=== PATIENT | female | born 1985 | race African-American/Black ===

== ENCOUNTER 2017-04-28 15:26 | Emergency (ER) | payer MEDICAID, OTHER ==
[~2017-04-28] VITALS: Ht 167.6 cm; Wt 140.2 kg
[~2017-04-28 15:26] MED LIST: PREN0.01 PO
--- NOTE | 2017-04-28 16:30 | PD ---
HPI Travel History International Travel<30 Days: No Contact w/Intl Traveler<30Days: No Known Affected Area: No History of Present Illness HPI Patient is a 31-year-old at 38 weeks and 2 days who presents with decreased movement. She reports that for the past week she has been estimate kick counts around 3/h. Normal is over 10 per hour. She reports experiencing contractions about every 10 minutes since arriving here. She denies any vaginal bleeding or leakage of fluid. Review of systems is negative except for patient reports some dizziness when going from sitting to standing. Since arriving here in the OB ED, patient reports that she is able to feel more movement. History Past Medical History Medical History: Denies Significant Hx Obstetric History Obstetric History Patient is a . She reports that all 5 of her previous pregnancies were full term vaginal uncomplicated deliveries. Past Surgical History Surgical History: No Previous Surgery Family History Narrative Family History She denies any family history of diabetes, hypertension, problems. Family History: Negative Social History Narrative Social History Patient lives at home with her 5 children and her boyfriend. Alcohol Use: No Tobacco Use: No Substance Abuse: No Allergies-Medications (Allergen,Severity, Reaction): Coded Allergies: No Known Allergies (Verified , 04/28/17) Home Meds Reported Medications Multivit/Min/Fol Ac/Iron/Pren ( Vit ( Plus)) Tab1 Tab PO DAILY 09/08/13 Review of Systems General / Constitutional: No: Fever, Chills Eyes: No: Diploplia, Blurred Vision, Visual changes HENT: No: Headaches Cardiovascular: No: Chest Pain or Discomfort, Edema Respiratory: No: Short of Breath Gastrointestinal: Abdominal Pain (patient feels her contractions), No: Nausea , Vomiting Genitourinary: No: Dysuria Musculoskeletal: Cramping, No: Edema Neurologic: No: Headache Physical Exam Blood pressure 137/84, pulse 99-111, respiratory rate 18, temperature 97.8, pain 0 Narrative GENERAL: Well-nourished, well-developed obese female patient. SKIN: Warm and dry. HEAD: Normocephalic and atraumatic. EYES: No scleral icterus. No injection or drainage. ENT: No nasal drainage noted. Mucous membranes pink. Airway patent. NECK: Supple, trachea midline. No JVD. CARDIOVASCULAR: Regular rate and rhythm without murmurs, gallops, or rubs. RESPIRATORY: Breath sounds equal bilaterally. No accessory muscle use. BREASTS: Bilateral exam showed no masses , no retractions, no nipple discharge. ABDOMEN/GI: Abdomen soft, non-tender, bowel sounds present, no rebound, no guarding Gravid to 38 weeks size GENITOURINARY: External Genitalia: intact and normal in appearance Cervix: Posterior Dilatation: 3cm Effacement: 40% Station: -3 Presentation: Vertex Membranes: intact Uterine Contractions: q2-5min FHT's: Category: Category 1 Baseline: 140 Reactive: Reactive Variability: moderate Decels: none EXTREMITIES: No cyanosis or edema. BACK: Nontender without obvious deformity. No CVA tenderness. NEUROLOGICAL: Awake and alert. Motor and sensory grossly within normal limits. Normal speech. Data Data Vital Signs Reviewed: Yes Orders Vital Signs (Adult) .ON ADMISSION (04/28/17 16:28) ^ Labor Status (04/28/17 16:28) ^ Non Stress Test (04/28/17 16:28) ^ Hydration (04/28/17 16:28) MDM Plan Patient is a 31-year-old at 38 weeks and 2 days who presents with decreased movement. She reports that for the past week she has been estimate kick counts around 3/h. Normal is over 10 per hour. Since arriving here in the OB ED, patient reports that she is able to feel more movement. 1. Decreased movement with category 1, reactive heart tracing and no significant cervical change from 2 cm at her last clinic visit 3 cm today. Monitor vital signs Monitor labor status/tocometry Monitor heart rate Encourage by mouth hydration Patient seen and discussed with Dr. Bautista. Diagnosis Diagnosis: Primary Impression: Decreased movement Additional Impression: with 38 completed weeks gestation Ruled Out: demise due to miscarriage Disposition: 01 DISCHARGE HOME Condition: Jordan Lobo MD R1 Apr 28, 2017 16:30
== END 2017-04-28 17:14 | disposition home or self-care (01) ==
LOC: HOBED 15:26
DX: O36.8130 Decreased fetal movements, third trimester, not applicable or unspecified (principal); R42 Dizziness and giddiness; Z3A.38 38 weeks gestation of pregnancy
CPT/HCPCS: 59025

== ENCOUNTER 2017-05-12 13:09 | Emergency (ER) | payer MEDICAID ==
--- NOTE | 2017-05-12 14:11 | PD ---
HPI Chief Complaint Abdominal and back pain Date Seen: May 12, 2017 Time Seen: 14:00 Travel History International Travel<30 Days: No Contact w/Intl Traveler<30Days: No Known Affected Area: No History of Present Illness HPI Patient is a 31-year-old at 40 weeks and 2 days who presents to OB triage complaining of lower abdominal and back pain. The pain comes and goes regularly q5-6 min. Patient reports that pain doesn't feel like contractions. Patient states that she experienced vaginal bleeding yesterday and describes it as bloody show in mucus. Patient denies gush of fluid. Positive movement. Para: 5 : 6 History Past Medical History Medical History: Denies Significant Hx Obstetric History Obstetric History Patient is a . She reports that all 5 of her previous pregnancies were full term vaginal uncomplicated deliveries. Past Surgical History Surgical History: No Previous Surgery Family History Narrative Family History She denies any family history of diabetes, hypertension, problems. Social History Narrative Social History Patient lives at home with her 5 children and her boyfriend. Alcohol Use: No Tobacco Use: No Substance Abuse: No Allergies-Medications (Allergen,Severity, Reaction): Coded Allergies: No Known Allergies (Verified , 04/28/17) Home Meds Reported Medications Multivit/Min/Fol Ac/Iron/Pren ( Vit ( Plus)) Tab1 Tab PO DAILY 09/08/13 Review of Systems Except as stated in HPI: all other systems reviewed are Neg Physical Exam Blood pressure 136/89, heart rate 90, respiratory rate 20, temperature 98.5 Narrative GENERAL: Well-nourished, well-developed patient. SKIN: Warm and dry. HEAD: Normocephalic and atraumatic. EYES: No scleral icterus. No injection or drainage. ENT: No nasal drainage noted. Mucous membranes pink. Airway patent. NECK: Supple, trachea midline. No JVD. CARDIOVASCULAR: Regular rate and rhythm without murmurs, gallops, or rubs. RESPIRATORY: Breath sounds equal bilaterally. No accessory muscle use. ABDOMEN/GI: Abdomen soft, non-tender, bowel sounds present, no rebound, no guarding Gravid to 40 weeks size GENITOURINARY: External Genitalia: intact and normal in appearance Dilatation: 4-5 Effacement: 40 Station: -2 Presentation: vertex Membranes: Intact Uterine Contractions: q5-8min FHT's: Category: 1 Reactive:; + EXTREMITIES: No cyanosis or edema. BACK: Nontender without obvious deformity. No CVA tenderness. NEUROLOGICAL: Awake and alert. Motor and sensory grossly within normal limits. Five out of 5 muscle strength in all muscle groups. Normal speech. Data Data Vital Signs Reviewed: Yes MDM Medical Record Reviewed: Yes Plan Patient is a 31-year-old at 40 weeks and 2 days who presents to OB triage complaining of lower abdominal and back pain. * Patient was reassured that pains are part of normal . * Patient was discharged home. Prior to discharge, patient was educated on signs and symptoms of active labor. Diagnosis Diagnosis: Primary Impression: Rule out active labor Additional Impression: 40 weeks gestation of Disposition: 01 DISCHARGE HOME Condition: Good Annie Luna MD R1 May 12, 2017 14:11
== END 2017-05-12 14:22 | disposition home or self-care (01) ==
LOC: HOBED 13:09
DX: O26.893 Other specified pregnancy related conditions, third trimester (principal); Z3A.40 40 weeks gestation of pregnancy
CPT/HCPCS: 99284

== ENCOUNTER 2017-05-20 08:18 | Inpatient (IN) | payer MEDICAID ==
[2017-05-20] VITALS (97 sets, daily range): BP systolic 103–161; BP diastolic 61–91; PULSE 78–137; RESP 16–18; TEMP 97.6–98.6
[~2017-05-20] VITALS: Ht 167.6 cm; Wt 142.0 kg
[2017-05-20] MEDS ORDERED: LACTATED RINGER'S 1000 ML INJ 1,000 ML IV SCH (08:53)
[2017-05-20] MEDS ORDERED: LACTATED RINGER'S 1000 ML INJ 1,000 ML IV PRN (08:53)
[2017-05-20] MEDS ORDERED: OXYTOCIN 30 UNITS-500ML PREMIX 500 ML IV SCH ×2 (09:00→17:00)
[2017-05-20] MEDS ORDERED: MINERAL OIL 10 ML VIAL TOPICAL PRN (09:00)
[2017-05-20] MEDS ORDERED: CITRIC ACID-SODIUM CITRATE LIQ 30 ML UDC PO SCH (09:00)
[2017-05-20] MEDS ORDERED: ONDANSETRON HCL 4 MG/2 ML VIAL IV PRN (09:00)
[2017-05-20] MEDS ORDERED: OXYTOCIN 30 UNITS-500ML PREMIX 500 ML IV ONE (09:00)
[2017-05-20] MEDS ORDERED: LIDOCAINE HCL 1% 50 ML VIAL I-DERMAL PRN (09:00)
[2017-05-20] MEDS ORDERED: LIDOCAINE HCL 1% 50 ML VIAL INFIL PRN (09:00)
[2017-05-20] MEDS ORDERED: SODIUM CHLORID 0.9% 500 ML INJ 500 ML IV PRN (09:00)
[2017-05-20] MEDS ORDERED: SODIUM CHLOR 0.9% 1000 ML INJ 1,000 ML IV PRN (09:13)
[2017-05-20 09:19] LABS: AUTOMATED NEUTROPHIL # 3.6 TH/MM3 (1.8-7.7); BASOPHIL % 0.3 % (0.0-2.0); EOSINOPHIL # 0.1 TH/MM3 (0-0.4); EOSINOPHIL % 1.7 % (0.0-4.0); HEMATOCRIT 34.3 % (35.0-46.0); HEMO FLAGS DIFF FINAL; LYMPHOCYTE # 1.8 TH/MM3 (1.0-4.8); MEAN CELL VOLUME 70.8 FL (80.0-100.0); MEAN CORPUSCULAR HEMOGLOBIN 22.8 PG (27.0-34.0); MEAN CORPUSCULAR HGB CONC 32.2 % (32.0-36.0); MONO % 6.3 % (0.0-8.0); NEUT % 60.7 % (16.0-70.0); PLATELET COUNT 185 TH/MM3 (150-450); RED BLOOD COUNT 4.84 MIL/MM3 (4.00-5.30); RED CELL DISTRIBUTION WIDTH 15.9 % (11.6-17.2); WHITE BLOOD COUNT 5.9 TH/MM3 (4.0-11.0)
[2017-05-20 09:38] LABS: BACTERIA, URINE FEW /hpf; BLOOD, URINE NEG (NEG); COMMENT (UR) CULTURE INDICATED; CULTURE IF INDICATED CULTURE INDICATED; GLUCOSE,URINE NEG (NEG); KETONE, URINE NEG (NEG); NITRITE,URINE NEG (NEG); PH, URINE 5.5 (5.0-8.5); SQUAMOUS EPITHELIAL CELL URINE 16 /hpf (0-5); URINE COLOR YELLOW (YELLW/STRAW)
--- NOTE | 2017-05-20 10:12 | HHI.HP ---
HPI Chief Complaint Induction of labor Date Seen: May 20, 2017 Travel History International Travel<30 Days: No Contact w/Intl Traveler<30Days: No Known Affected Area: No History of Present Illness HPI 31 year old at 41/3 who came in for induction of labor. She notes that none of her prior pregnancies had gestated this long. Patient states she has been seeing Kay Turner outpatient, reports no complications of , was told she was 4cm dilated last week, -GBS, no hypertension, and a normal ultrasound several months ago. No malodorous, bloody or other discharge from vagina. No urgency, dysuria or change in urinary color/smell/frequency. Reported good movement, no current contractions. She states no recent chest pain, shortness of breath, abdominal pain or other complaints at this time. Para: 4 : 5 Miscarriage: 0 : 0 History Past Medical History Medical History: Denies Significant Hx Past Surgical History Surgical History: No Previous Surgery Family History Family History: Negative Social History Alcohol Use: No Tobacco Use: No Substance Abuse: No Allergies-Medications (Allergen,Severity, Reaction): Coded Allergies: No Known Allergies (Verified , 05/20/17) Home Meds Reported Medications Multivit/Min/Fol Ac/Iron/Pren ( Vit ( Plus)) Tab1 Tab PO DAILY 09/08/13 Review of Systems General / Constitutional: No: Fever, Chills Eyes: No: Diploplia, Blurred Vision, Visual changes, Pain HENT: No: Headaches, Vertigo, Lightheadedness Cardiovascular: No: Irregular Rhythm, Chest Pain or Discomfort, Palpitations, Tachycardia, Syncope Respiratory: No: Cough, Short of Breath, Wheezing Gastrointestinal: No: Nausea, Vomiting, Diarrhea, Abdominal Pain, Constipation Genitourinary: No: Urgency, Frequency, Dysuria, Hematuria Musculoskeletal: No: Limited ROM, Weakness, Edema Skin: No Rash, No Itching Neurologic: No: Weakness, Dizziness, Syncope Psychiatric: No: Anxiety, Depression Physical Exam Vital Signs Date Time Temp Pulse Resp B/P Pulse Ox O2 Delivery O2 Flow Rate FiO2 05/20/17 09:25 95 05/20/17 09:20 105 05/20/17 09:15 95 Narrative GENERAL: Well-nourished, well-developed patient. SKIN: Warm and dry. HEAD: Normocephalic and atraumatic. EYES: No scleral icterus. No injection or drainage. ENT: No nasal drainage noted. Mucous membranes pink. Airway patent. NECK: Supple, trachea midline. No JVD. CARDIOVASCULAR: Regular rate and rhythm without murmurs, gallops, or rubs. RESPIRATORY: Breath sounds equal bilaterally. No accessory muscle use. ABDOMEN/GI: Abdomen soft, non-tender, bowel sounds present, no rebound, no guarding GENITOURINARY: External Genitalia: intact and normal in appearance Cervix: posterior Dilatation: 7 Effacement: 70 Station: -2 Membranes: AROM Uterine Contractions: none FHT's: Category: 1 Baseline: 140 Reactive: + Variability: moderate Decels: none EXTREMITIES: No cyanosis or edema. BACK: Nontender without obvious deformity. No CVA tenderness. NEUROLOGICAL: Awake and alert. Motor and sensory grossly within normal limits. Five out of 5 muscle strength in all muscle groups. Normal speech. Data Data Orders Admit To Inpatient (05/20/17 ) Code Status (05/20/17 08:53) Vital Signs (Adult) .Per protocol (05/20/17 08:53) Activity Oob Ad Consuelo (05/20/17 08:53) Heart (05/20/17 08:53) Amnioinfusion (05/20/17 08:53) Urinary Catheter Management .ONCE (05/20/17 08:53) Diet Liquid (05/20/17 Breakfast) Lactated Ringer's 1000 Ml Inj (Lr 1000 M (05/20/17 08:53) Lactated Ringer's 1000 Ml Inj (Lr 1000 M (05/20/17 08:53) Sodium Chlorid 0.9% 500 Ml Inj (Ns 500 M (05/20/17 09:00) Sodium Chlor 0.9% 1000 Ml Inj (Ns 1000 M (05/20/17 09:13) Lidocaine 1% Inj (50 Ml) (Xylocaine 1% I (05/20/17 09:00) Citric Acid-Sodium Citrate Liq (Bicitra (05/20/17 09:00) Ondansetron Inj (Zofran Inj) (05/20/17 09:00) Fentanyl Inj (Fentanyl Inj) (05/20/17 09:00) Fentanyl Inj (Fentanyl Inj) (05/20/17 09:00) Complete Blood Count With Diff (05/20/17 08:53) Hold Clot (05/20/17 08:53) Abo/Rh Blood Type (05/20/17 08:53) Urinalysis - C+S If Indicated (05/20/17 08:53) Resp Oxygen Non Rebreathe Mask (05/20/17 ) ^ Epidural / Intrathecal Infus (05/20/17 08:53) Oxytocin 30 Units-500ml Premix (Pitocin (05/20/17 09:00) Lidocaine 1% Inj (50 Ml) (Xylocaine 1% I (05/20/17 09:00) Light Mineral Oil (Muri-Lube Oil) (05/20/17 09:00) Inpatient Certification (05/20/17 ) Specimen To Be Collected PRN (05/20/17 08:53) ^ Non Stress Test (05/20/17 08:55) Response To Medication .Post New Med Administration, Reaction (05/20/17 08:55) ^ Discontinue Medication (05/20/17 08:55) Oxytocin 30 Units-500ml Premix (Pitocin (05/20/17 09:00) Urine Culture (05/20/17 08:40) Labs Laboratory Tests Test 05/20/17 08:40 White Blood Count 5.9 Red Blood Count 4.84 Hemoglobin 11.0 Hematocrit 34.3 Mean Corpuscular Volume 70.8 Mean Corpuscular Hemoglobin 22.8 Mean Corpuscular Hemoglobin 32.2 Concent Red Cell Distribution Width 15.9 Platelet Count 185 Mean Platelet Volume 10.7 Neutrophils (%) (Auto) 60.7 Lymphocytes (%) (Auto) 31.0 Monocytes (%) (Auto) 6.3 Eosinophils (%) (Auto) 1.7 Basophils (%) (Auto) 0.3 Neutrophils # (Auto) 3.6 Lymphocytes # (Auto) 1.8 Monocytes # (Auto) 0.4 Eosinophils # (Auto) 0.1 Basophils # (Auto) 0.0 CBC Comment DIFF FINAL Differential Comment Urine Color YELLOW Urine Turbidity HAZY Urine pH 5.5 Urine Specific Parachute 1.018 Urine Protein 30 Urine Glucose (UA) NEG Urine Ketones NEG Urine Occult Blood NEG Urine Nitrite NEG Urine Bilirubin NEG Urine Urobilinogen LESS THAN 2.0 Urine Leukocyte Esterase LARGE Urine RBC 1 Urine WBC 20 Urine WBC Clumps RARE Urine Squamous Epithelial 16 Cells Urine Bacteria FEW Microscopic Urinalysis Comment CULTURE INDICATED Blood Type Blood Bank Comment Band and Hold Date/Time Procedure Status Source Growth 05/20/17 08:40 Urine Culture Received Urine Clean Catch Pending Assessment/Plan Assessment and Plan Induction of labor -Pitocin -AROM -Fentanyl PRN pain -Expectant delivery d/w Dr. Green, Jordan Boswell MD R1 May 20, 2017 10:11
--- NOTE | 2017-05-20 14:52 | PD.LABORPN ---
Subjective Subjective Patient seen and examined. Resting comfortably in bed. Objective Vital Signs Vital Signs Date Time Temp Pulse Resp B/P Pulse Ox O2 Delivery O2 Flow Rate FiO2 05/20/17 14:29 88 18 135/88 05/20/17 14:25 89 1817 14:20 85 1817 14:15 88 05/20/17 14:10 85 17 14:05 83 05/20/17 14:00 90 05/20/17 13:55 87 05/20/17 13:50 83 17 13:45 83 17 13:40 82 05/20/17 13:35 82 05/20/17 13:30 88 05/20/17 13:29 88 137/80 05/20/17 13:25 89 05/20/17 13:20 95 17 13:15 91 05/20/17 13:10 97 05/20/17 13:05 98 05/20/17 12:55 95 05/20/17 12:50 130 17 12:45 123 17 12:40 97 17 12:35 126 05/20/17 12:30 137 05/20/17 12:10 115 05/20/17 12:00 83 05/20/17 11:55 95 17 11:50 87 17 11:45 104 17 11:40 91 17 11:39 90 129/76 1817 11:35 94 1817 11:30 85 17 11:25 92 1817 11:20 90 1817 11:15 91 17 11:10 86 1817 11:05 88 17 11:00 87 17 10:55 87 1817 10:50 88 17 10:45 94 18/17 10:40 86 18/17 10:35 84 18/17 10:31 89 131/61 18/17 10:30 86 16 18/17 10:30 97.9 18/17 10:25 78 18/17 10:20 90 8/18/17 10:15 86 05/20/17 10:10 86 05/20/17 10:05 88 05/20/17 10:00 84 05/20/17 09:55 91 05/20/17 09:50 95 05/20/17 09:45 89 05/20/17 09:40 99 05/20/17 09:35 93 127/81 05/20/17 09:35 91 05/20/17 09:30 94 05/20/17 09:25 95 05/20/17 09:20 105 05/20/17 09:15 95 05/20/17 09:10 97 05/20/17 09:05 102 05/20/17 09:00 102 05/20/17 08:55 101 05/20/17 08:50 94 05/20/17 08:45 97.6 05/20/17 08:45 99 Objective Pelvic Exam: Dilatation: 9 Effacement: 80 Station: -1 Presentation: vertex Membranes: AROM Uterine Contractions: every 2-3 minutes FHT's: Category: 2 Baseline: 150 Reactive: + Variability: Moderate Decels: intermittent decelerations Assessment/Plan Assessment and Plan 31 year old at 41-3/7 weeks gestation. 1. IUP- Category II tracing -Position changes -Fluid bolus -Continue to monitor 2. Induction of labor. AROM with clear fluid. 3. GBS negative dw Dr. Cifuentes, Dr. Michele Valderrama,Jordan Luis MD R1 May 20, 2017 14:52
[2017-05-20] MEDS ORDERED: DIPHTH/TETANUS/ACEL PERTUSSIS (BOOSTER) 0.5 ML VIAL/PFS IM ONE (16:00)
[2017-05-20] MEDS ORDERED: MEASLES, MUMPS, RUBELLA VACCINE 0.5 ML VIAL SQ ONE (16:00)
--- NOTE | 2017-05-20 16:22 | PD.LABORPN ---
Subjective Subjective Patient is breathing through contractions. Objective Vital Signs Vital Signs Date Time Temp Pulse Resp B/P Pulse Ox O2 Delivery O2 Flow Rate FiO2 05/20/17 15:45 102 18/17 15:40 100 18/17 15:35 98 18/17 15:35 98 147/90 18/17 15:30 98.2 18 18/17 15:30 95 18/17 15:25 93 18/17 15:20 94 18/17 15:15 93 18/17 15:10 93 18/17 15:05 101 17 15:00 109 17 14:55 97 17 14:50 99 17 14:45 96 17 14:40 94 05/20/17 14:35 85 05/20/17 14:30 84 05/20/17 14:29 88 18 135/88 05/20/17 14:25 89 05/20/17 14:20 85 05/20/17 14:15 88 05/20/17 14:10 85 18/17 14:05 83 05/20/17 14:00 90 18/17 13:55 87 18/17 13:50 83 18/17 13:45 83 18/17 13:40 82 18/17 13:35 82 18/17 13:30 88 18/17 13:29 88 137/80 18/17 13:25 89 18/17 13:20 95 05/20/17 13:15 91 05/20/17 13:10 97 18/17 13:05 98 18/17 12:55 95 18/17 12:50 130 18/17 12:45 123 18/17 12:40 97 18/17 12:35 126 18/17 12:30 137 18/17 12:10 115 18/17 12:00 83 18/17 11:55 95 18/17 11:50 87 18/17 11:45 104 18/17 11:40 91 18/17 11:39 90 129/76 18/17 11:35 94 05/20/17 11:30 85 05/20/17 11:25 92 05/20/17 11:20 90 05/20/17 11:15 91 05/20/17 11:10 86 05/20/17 11:05 88 05/20/17 11:00 87 05/20/17 10:55 87 05/20/17 10:50 88 05/20/17 10:45 94 05/20/17 10:40 86 05/20/17 10:35 84 05/20/17 10:31 89 131/61 05/20/17 10:30 86 16 05/20/17 10:30 97.9 05/20/17 10:25 78 05/20/17 10:20 90 05/20/17 10:15 86 05/20/17 10:10 86 05/20/17 10:05 88 05/20/17 10:00 84 05/20/17 09:55 91 05/20/17 09:50 95 05/20/17 09:45 89 05/20/17 09:40 99 05/20/17 09:35 93 127/81 05/20/17 09:35 91 05/20/17 09:30 94 05/20/17 09:25 95 05/20/17 09:20 105 05/20/17 09:15 95 05/20/17 09:10 97 05/20/17 09:05 102 05/20/17 09:00 102 05/20/17 08:55 101 05/20/17 08:50 94 05/20/17 08:45 97.6 05/20/17 08:45 99 Objective Pelvic Exam: Cervix: midposition Dilatation: 9 Effacement: 90 Station: -1 Presentation: vertex Membranes: AROM, clear fluid Uterine Contractions: q2-3min FHT's: Category: II Baseline: 140 Reactive: + Variability: moderate Decels: intermittent variable decelerations Assessment/Plan Assessment and Plan 31 year old at 41-3/7 weeks gestation. 1. IUP- Category II tracing -Position changes -IV fluids -Continue to monitor 2. Induction of labor. AROM with clear fluid. IUPC placed. 3. GBS negative dw Dr. Bautista and Dr. Valderrama R1 Luisa Cifuentes MD, R3 May 20, 2017 16:22
--- NOTE | 2017-05-20 16:56 | PD.OB.DELI ---
Delivery Date: May 20, 2017 Anesthesia: None Episiotomy: None Vaginal Delivery: Normal Presentation: Occiput anterior Nuchal Cord: None Delayed cord clamping (45 sec): No Shoulder Dystocia: Hawa maneuver done Infant: Male One Minute : 7 Five Minute : 9 Weight: 4675g Placenta: Spontaneous delivery, Intact, 3 vessel cord Laceration: No lacerations Estimated blood loss: 100cc Additional Information Mild shoulder dystocia, responded to rotational maneuver. Delivery easily accomplished after that with no identifiable injury. Supervised by Dr. Bautista and Dr. Valderrama R1 Luisa Cifuentes MD, R3 May 20, 2017 16:56
[2017-05-20] MEDS ORDERED: BENZOCAINE 20% TOPICAL SPRAY 60 ML CAN TOPICAL PRN (17:00)
[2017-05-20] MEDS ORDERED: SODIUM CHLORIDE 0.9% FLUSH 10 ML FLUSH IV FLUSH PRN (17:00)
[2017-05-20] MEDS ORDERED: ZOLPIDEM TARTRATE 5 MG TAB PO PRN (17:00)
[2017-05-20] MEDS ORDERED: WITCH HAZEL 50%/GLYCERIN 12.5% 40 PAD JAR TOPICAL PRN (17:00)
[2017-05-20] MEDS ORDERED: ACETAMINOPHEN 325 MG TAB PO PRN (17:00)
[2017-05-20] MEDS ORDERED: oxyCODONE/ACETAMINOPHEN 5 MG/325 MG TAB PO PRN ×2 (17:00)
[2017-05-20] MEDS ORDERED: DOCUSATE SODIUM 50 MG/SENNA 8.6 MG TAB PO PRN (17:00)
[2017-05-20] MEDS ORDERED: ONDANSETRON ODT 4 MG TAB PO PRN (17:00)
[2017-05-20] MEDS ORDERED: ALUMINUM/MAGNESIUM/SIMETH 30 ML CUP PO PRN (17:00)
[2017-05-20] MEDS ORDERED: SODIUM CHLORIDE 0.9% FLUSH 10 ML FLUSH IV FLUSH SCH (21:00)
[2017-05-21] MEDS: IBUPROFEN 600 MG TAB PO PRN ×2 (05:34→14:05)
[2017-05-21 08:00] VITALS: BP 111/74; PULSE 98; RESP 17; TEMP 97.8
--- NOTE | 2017-05-21 08:30 | HHI.OB ---
Subjective Post Day: 1 Remarks day # 1. AFVSS overnight. Decreased lochia. Denies dysuria. No breast tenderness. She is feeding the baby via and formula. Appetite good. No nausea or vomiting. Ambulating well. Denies calf pain or shortness of breath. Otherwise, she is doing well this morning and has no other concerns. Objective Vitals/I&O Vital Signs Date Time Temp Pulse Resp B/P Pulse Ox O2 Delivery O2 Flow Rate FiO2 05/20/17 20:00 97.7 100 18 05/20/17 20:00 143/80 05/20/17 18:25 98.6 101 16 131/81 05/20/17 17:46 94 128/82 05/20/17 17:30 97.6 05/20/17 17:28 93 121/68 05/20/17 17:15 18 05/20/17 16:55 106 103/83 05/20/17 16:31 102 161/91 05/20/17 16:10 100 05/20/17 16:05 97 05/20/17 16:00 125 05/20/17 15:55 118 05/20/17 15:50 99 05/20/17 15:45 102 05/20/17 15:40 100 05/20/17 15:35 98 05/20/17 15:35 98 147/90 05/20/17 15:30 98.2 18 05/20/17 15:30 95 05/20/17 15:25 93 17 15:20 94 05/20/17 15:15 93 05/20/17 15:10 93 05/20/17 15:05 101 05/20/17 15:00 109 05/20/17 14:55 97 05/20/17 14:50 99 05/20/17 14:45 96 05/20/17 14:40 94 05/20/17 14:35 85 17 14:30 84 17 14:29 88 18 135/88 1817 14:25 89 1817 14:20 85 1817 14:15 88 1817 14:10 85 05/20/17 14:05 83 05/20/17 14:00 90 05/20/17 13:55 87 8/18/17 13:50 83 8/18/17 13:45 83 8/18/17 13:40 82 8/18/17 13:35 82 8/18/17 13:30 88 8/18/17 13:29 88 137/80 8/18/17 13:25 89 8/18/17 13:20 95 8/18/17 13:15 91 8/18/17 13:10 97 8/18/17 13:05 98 8/18/17 12:55 95 8/18/17 12:50 130 8/18/17 12:45 123 8/18/17 12:40 97 8/18/17 12:35 126 8/18/17 12:30 137 8/18/17 12:10 115 8/18/17 12:00 83 8/18/17 11:55 95 8/18/17 11:50 87 8/18/17 11:45 104 8/18/17 11:40 91 8/18/17 11:39 90 129/76 8/18/17 11:35 94 8/18/17 11:30 85 8/18/17 11:25 92 8/18/17 11:20 90 8/18/17 11:15 91 8/18/17 11:10 86 8/18/17 11:05 88 8/18/17 11:00 87 8/18/17 10:55 87 8/18/17 10:50 88 8/18/17 10:45 94 8/18/17 10:40 86 8/18/17 10:35 84 8/18/17 10:31 89 131/61 8/18/17 10:30 86 16 8/18/17 10:30 97.9 8/18/17 10:25 78 8/18/17 10:20 90 8/18/17 10:15 86 8/18/17 10:10 86 8/18/17 10:05 88 8/18/17 10:00 84 8/18/17 09:55 91 8/18/17 09:50 95 8/18/17 09:45 89 8/18/17 09:40 99 8/18/17 09:35 93 127/81 8/18/17 09:35 91 8/18/17 09:30 94 8/18/17 09:25 95 8/18/17 09:20 105 05/20/17 09:15 95 05/20/17 09:10 97 05/20/17 09:05 102 05/20/17 09:00 102 05/20/17 08:55 101 05/20/17 08:50 94 05/20/17 08:45 97.6 05/20/17 08:45 99 Objective Remarks GENERAL: Well-nourished, well-developed female in no apparent distress. CARDIOVASCULAR: Regular rate and rhythm without murmurs, gallops, or rubs. RESPIRATORY: Breath sounds equal bilaterally. No accessory muscle use. ABDOMEN/GI: Abdomen soft, non-tender. Fundus: Firm, non-tender at umbilicus. GENITOURINARY: Light to moderate bleeding. EXTREMITIES: No cyanosis or edema, non-tender, without signs of DVT. Medications and IVs Current Medications Medications (Trade) Dose Ordered Sig/Blanquita Route Start Time Stop Time Status Last Admin Lactated Ringer's 1,000 ml @ 125 mls/hr Q8H IV 05/20/17 08:53 05/20/17 09:28 Lactated Ringer's 1,000 ml @ 3,000 mls/hr Q20M PRN IV 05/20/17 08:53 Sodium Chloride 500 ml @ 1,000 mls/hr ONCE PRN IV 05/20/17 09:00 05/21/17 08:59 (NS 1000 ml Inj) 1,000 ml @ 100 mls/hr Q10H PRN IV 05/20/17 09:13 Mineral Oil 10 ml 10 ml UNSCH PRN TOPICAL 05/20/17 09:00 (Pitocin 30 Units-NS 500 ml Premix) 500 ml @ 0 mls/hr TITRATE IV 05/20/17 09:00 05/20/17 09:31 (NS Flush) 2 ml BID IV FLUSH 05/20/17 21:00 (NS Flush) 2 ml UNSCH PRN IV FLUSH 05/20/17 17:00 (Tylenol) 650 mg Q4H PRN PO 05/20/17 17:00 05/21/17 08:17 (Motrin) 600 mg Q6H PRN PO 05/20/17 17:00 05/21/17 05:34 (Percocet 5-325 Mg) 1 tab Q4H PRN PO 05/20/17 17:00 05/20/17 17:41 (Percocet 5-325 Mg) 2 tab Q4H PRN PO 05/20/17 17:00 (Americaine 20% Top Spr) 1 spray Q4H PRN TOPICAL 05/20/17 17:00 05/21/17 08:17 (Tucks Pads) 1 applic QID PRN TOPICAL 05/20/17 17:00 05/21/17 08:17 (Yamile-Colace) 2 tab Q12H PRN PO 05/20/17 17:00 (Ambien) 5 mg HS PRN PO 05/20/17 17:00 (Mag-Al Plus Susp Liq) 15 ml Q8H PRN PO 05/20/17 17:00 (Zofran Odt) 4 mg Q6H PRN PO 05/20/17 17:00 Assessment/Plan Assessment and Plan 31 y/o female who is PPD# 1 s/p , complicated by mild shoulder dystocia. She followed with Kay Turner -Continue routine care. -Tylenol and Motrin PRN pain. -Encouraged OOB. Advised pelvic rest for 6 wks. -Re: ctrl, she would like BTL -Anticipate discharge tomorrow DW Akosua Colbert MD R2 May 21, 2017 08:30
[2017-05-21] MEDS ORDERED: IBUP-232 PO (18:36)
[2017-05-21] MEDS ORDERED: ACET1TAB86 PO (18:36)
--- NOTE | 2017-05-21 18:37 | HHI.DCPOC ---
Discharge Care Plan Diagnosis: (1) 40 weeks gestation of (2) Shoulder dystocia during labor and delivery, delivered (3) Hypertension affecting Report Symptoms to Your Doctor -Temperature above 100.5 degrees -Redness, of incision or excessive or foul smelling drainage -Unusual pain or calf pain -Increased vaginal bleeding -Painful or difficulty urinating -Feelings of extreme sadness or anxiety after 2 weeks Goals to Promote Your Health * To prevent worsening of your condition and complications * To maintain your health at the optimal level Directions to Meet Your Goals Take your medications as prescribed Follow your dietary instruction Follow activity as directed Ensure plenty of rest for recovery Drink fluids for hydration Keep your appointments as scheduled Take your immunizations and boosters as scheduled If your symptoms worsen call your PCP, if no PCP go to Urgent Care Center or Emergency Room Smoking is Dangerous to Your Health. Avoid second hand smoke Call the 24-hour crisis hotline for domestic abuse at Akosua Aponte MD R2 May 21, 2017 18:37
[2017-05-21 19:43] VITALS: BP 142/72; PULSE 73; RESP 18; TEMP 98.1
[2017-05-22] MEDS: IBUPROFEN 600 MG TAB PO PRN (05:05)
--- NOTE | 2017-05-22 07:17 | HHI.OB ---
Subjective Post Day: 2 Remarks day # 2. AFVSS overnight. Decreased lochia. Denies dysuria. No breast tenderness. She is feeding the baby via and formula. Appetite good. No nausea or vomiting. Ambulating well. Denies calf pain or shortness of breath. Otherwise, she is doing well this morning and has no other concerns. Objective Vitals/I&O Vital Signs Date Time Temp Pulse Resp B/P Pulse Ox O2 Delivery O2 Flow Rate FiO2 05/21/17 19:43 98.1 05/21/17 19:43 73 18 142/72 05/21/17 08:00 97.8 98 17 111/74 Objective Remarks GENERAL: Well-nourished, well-developed female in no apparent distress. CARDIOVASCULAR: Regular rate and rhythm without murmurs, gallops, or rubs. RESPIRATORY: Breath sounds equal bilaterally. No accessory muscle use. ABDOMEN/GI: Abdomen soft, non-tender. Fundus: Firm, non-tender at umbilicus. GENITOURINARY: Light to moderate bleeding. EXTREMITIES: No cyanosis or edema, non-tender, without signs of DVT. Medications and IVs Current Medications Medications (Trade) Dose Ordered Sig/Blanquita Route Start Time Stop Time Status Last Admin Lactated Ringer's 1,000 ml @ 125 mls/hr Q8H IV 05/20/17 08:53 05/20/17 09:28 Lactated Ringer's 1,000 ml @ 3,000 mls/hr Q20M PRN IV 05/20/17 08:53 (NS 1000 ml Inj) 1,000 ml @ 100 mls/hr Q10H PRN IV 05/20/17 09:13 Mineral Oil 10 ml 10 ml UNSCH PRN TOPICAL 05/20/17 09:00 (Pitocin 30 Units-NS 500 ml Premix) 500 ml @ 0 mls/hr TITRATE IV 05/20/17 09:00 05/20/17 09:31 (NS Flush) 2 ml BID IV FLUSH 05/20/17 21:00 (NS Flush) 2 ml UNSCH PRN IV FLUSH 05/20/17 17:00 (Tylenol) 650 mg Q4H PRN PO 05/20/17 17:00 05/21/17 08:17 (Motrin) 600 mg Q6H PRN PO 05/20/17 17:00 05/22/17 05:05 (Percocet 5-325 Mg) 1 tab Q4H PRN PO 05/20/17 17:00 05/20/17 17:41 (Percocet 5-325 Mg) 2 tab Q4H PRN PO 05/20/17 17:00 05/21/17 14:06 (Americaine 20% Top Spr) 1 spray Q4H PRN TOPICAL 05/20/17 17:00 05/21/17 08:17 (Tucks Pads) 1 applic QID PRN TOPICAL 05/20/17 17:00 05/21/17 08:17 (Yamile-Colace) 2 tab Q12H PRN PO 05/20/17 17:00 05/21/17 14:05 (Ambien) 5 mg HS PRN PO 05/20/17 17:00 (Mag-Al Plus Susp Liq) 15 ml Q8H PRN PO 05/20/17 17:00 (Zofran Odt) 4 mg Q6H PRN PO 05/20/17 17:00 Assessment/Plan Assessment and Plan 31 y/o female who is PPD# 2 s/p , complicated by mild shoulder dystocia. She followed with Kay Turner during . Post- Care -Continue routine care. -Tylenol and Motrin PRN pain. -Encouraged OOB. Advised pelvic rest for 6 wks. -Re: ctrl, she would like BTL. She initially wanted Depo Provera but declined it this morning. -Anticipate discharge today Akosua Bol[address] Dr[address] MD R2 May 22, 2017 07:17
[2017-05-22 08:00] VITALS: BP 130/82; PULSE 66; RESP 17; TEMP 98.1
== END 2017-05-22 13:30 | disposition home or self-care (01) | DRG 775 ==
LOC: H2EB 08:18 → H1EA 18:00
PROVIDERS: ADMIT Obstetrics & Gynecology Obstetrics; ATTEND Obstetrics & Gynecology Obstetrics
PROC: 10E0XZZ Delivery of Products of Conception, External Approach (ICD-10-PCS; principal; 2017-05-20)
DX: O16.4 Unspecified maternal hypertension, complicating childbirth (principal); O48.0 Post-term pregnancy; Z37.0 Single live birth; O66.0 Obstructed labor due to shoulder dystocia; Z3A.41 41 weeks gestation of pregnancy
CPT/HCPCS: 59025; 81001; 85025; 87086; 90715; J2590; J3010; J7120